=== PATIENT | male | born 1995 | race Caucasian/White ===

== ENCOUNTER → 2017-04-17 | Outpatient (CLI) | payer OTHER ==
[2016-06-27 20:31] VITALS: BP 112/65
--- NOTE | 2017-04-17 12:45 | RAD ---
HISTORY: Old neck and back injury. Study: Three views of the cervical spine. Comparison: Cervical spine series dated April 08, 2015. Findings: AP and lateral radiographs of the cervical spine demonstrate normal alignment from the craniocervica l junction to the level of T1. The central canal appears patent without posterior element abnormali ty. No prevertebral soft tissue swelling can be identified. The odontoid appears intact. The late ral masses of C1 align with the body of C2. The lung apices are clear. IMPRESSION: 1. Unremarkable examination of the cervical spine. Reported By:
--- NOTE | 2017-04-17 12:48 | RAD ---
HISTORY: Bold neck and back injury. Study: Three views of the lumbar spine. Comparison: Lumbar spine series dated April 08, 2015. Findings: Normal alignment of the lumbar spine is maintained. The posterior elements appear unremarkable in t heir appearance. The disk space height is maintained without significant endplate sclerosis. No ev idence for acute fracture can be identified. IMPRESSION: 1. Negative exam. Reported By:
== END ==
LOC: RAD 11:51
PROVIDERS: ATTEND Internal Medicine
DX: S19.89XA Other specified injuries of other specified part of neck, initial encounter (principal); S39.82XA Other specified injuries of lower back, initial encounter; X58.XXXA Exposure to other specified factors, initial encounter
CPT/HCPCS: 72040; 72100

== ENCOUNTER 2020-02-19 05:06 | Observation (INO) ==
[2020-02-19 05:16] VITALS: BMI 17.7
--- NOTE | 2020-02-19 05:35 | DR.DING ---
HPI - Time Seen Time seen: 05:23 - PCP Primary Care Physician: NFD - Complaint Chief Complaint Doctors Comments: Patient states he took 15 -20 Tramadol and later says he took 10 -15 Tramadols about an hour ago after getting upset with his "baby mama" and his children and the way people has been treating him. States they do not want to be around him because he can be a "butt whole" at times. States he was trying to hurt himself then because he is upset about his ex-girl friend and the fact that he cannot work because he is taking care of his jason that had a stroke and cannot walk and he has to carry him around and this has been going on for a while. He has not local doctor. He smokes one pack cigarettes daily and drinks 12 pack day and had cocaine couple of days ago. States he tried to hurt himself about 2-3 months ago he went to [facility] in [place] for overdose meth. He has been having suicidal thoughts 2-3 months ago and earlier. He denies history or seizures. He denies chest pain, SOB, cold, cough, fever or chills. He denies stomach pain, hematuria or dysuria. Chief Complaint:: PER EMS, 911 CALL TO PATIENT FOR POSSIBLE OVERDOSE. PATIENT STATES HE TOOK 15-20 TRAMADOL BECAUSE HE AND HIS SIGNIFICANT OTHER WERE ARGUING. - COVID-19 Coronavirus risk:travel/contact w/high risk person: No Has patient experienced Coronavirus symptoms: No - Reviewed Nurses Notes Review: Yes - Source History Provided: Patient - Mode of Arrival Mode of Arrival: EMS - Timing Onset of Chief Complaint: 02/19/20 - Context Ingestion: Intentional Expresses: Suicidal Ideation, Suicidal Intent Stressors: Work, Family, Relationships History of: Depression, Suicidal Attemp - Severity Severity: Moderate - Modifying Factors Vomited after ingestion: No - Associated signs and symptoms Associated signs and symptoms: ETOH intoxication, Cocaine PMH - PMH Past Medical History: No Past Medical History: Kidney Stones Past Surgical History: No Surgical History: No History - Family History History of Family Medical Conditions: No Family Medical History: Diabetes Mellitus, Hypertension - Social History Alcohol Use: Occasionally Do you use any recreational Drugs:: Yes Lives Where: Home - Travel Risk Coronavirus risk:travel/contact w/high risk person: No Has patient experienced Coronavirus symptoms: No - infectious screening In the last 2 months have you had wt loss of >10#?: NO Have you had fever, night sweats or hemotysis?: No Have you traveled outside the country in the last 6 months?: No Isolation: Standard ROS - Review of Systems Constitutional: No Symptoms Reported Eyes: No Symptoms Reported ENTM: No Symptoms Reported Respiratoy: No Symptoms Reported. negative: See HPI, Productive Cough, Non- Productive Cough, Moist Cough, Dry Cough, Hacking Cough, Barking Cough, Brassy Cough, Orthopnea, Short of Breath, Stridor, Wheezing, Hemoptysis, Other Cardiovascular: No Symptoms Reported. negative: See HPI, Chest Pain, Edema, Palpitations, Syncope, Cyanosis, Skin Mottling, Other Gastrointestinal/Abdominal: No Symptoms Reported. negative: See HPI, Abdominal Pain, Constipation, Diarrhea, Nausea, Vomiting, Food Intolerance, Other Genitourinary: No Symptoms Reported Neurological: No Symptoms Reported, Depressed, Emotional Problems Musculoskeletal: No Symptoms Reported Integumentary: No Symptoms Reported Hematologic/Lymphatic: No Symptoms Reported. negative: See HPI, Anemia, Blood Clots, Easy Bleeding, Easy Bruising, Swollen Glands, Lymphadenopathy, Other Endocrine: No Symptoms Reported Psychiatric: No Symptoms Reported, Depression, Suicidal PE - General Limitations: No Limitations General Appearance: Alert, In No Apparent Distress - Head Head Exam: Normal Inspection, Atraumatic, Normocephalic - Eyes Eye exam: Normal Appearance, PERRL, EOMI. negative: Scleral Icterus, Conjunctival Injection, Nystagmus, Miosis, Mydrasis, Periorbital Swelling, Periorbital Tenderness, Other Pupils: Regular, Round: Bilateral, Reactive: Bilateral Sclera/Conjunctival: Normal Inspection: Bilateral - ENT ENT Exam: Normal Exam, Normal Oropharynx, Normal External Ear Exam, Mucous Membranes Moist, TM's Normal Bilaterally - Neck Neck Exam: Normal Inspection, Full ROM, Trachea Midline. negative: Tenderness, Meningismus, Lymphadenopathy, Thyromegaly, Other - Chest Chest Inspection: Normal Inspection, Symmetric Chest Wall Rise. negative: Tenderness, Rash, Abscess, Other - Respiratory Respiratory Exam: Normal Lung Sounds Bilat Respiratory Exam: Bilateral Clear to Auscultation - Cardiovascular Cardiovascular Exam: Regular Rate, Normal Rhythm, Normal Heart Sounds - Abdominal Exam Abdominal Exam: Normal Inspection, Normal Bowel Sounds, Soft. negative: Distention, Tenderness, Guarding, Rebound, Rigidity, Dimnished Bowel Sounds, Hyperactive Bowel Sounds, Hypoactive Bowel Sounds, Organomegaly, Trauma, Incision, Ascites, Mass, Bruit, Pulsatile Mass, Hernia, Other Abdominal Tenderness: negative: RUQ, RLQ, LUQ, LLQ, Epigastrium, Suprapubic, Diffuse, Mild, Moderate, Severe, Other - Extremities Extremities Exam: Normal Inspection, Full ROM, Normal Capillary Refill. negat conrado: Tenderness, Edema, Joint Swelling, Calf Tenderness, Other - Back Back Exam: Normal Inspection, Full ROM. negative: Tenderness, (R) CVA Tenderness, (L) CVA Tenderness, Muscle Spasm, Paraspinal Tenderness, Vertebral Tenderness, Rashes, (R) Sciatic Notch Tenderness, (L) Sciatic Notch Tendern, (R) Straight Leg Raise, (L) Straight Leg Raise, Other - Neurologic Neurological Exam: Alert, Oriented X3, CN II-XII Intact, Reflexes Normal. negative: Normal Gait (gait not tested) Speech: Fluid Speech Cranial Nerve Exam: EOM Function (II, III, IV, ): Normal, Facial Sensation (V): Normal, Facial Palsy (VII): Normal, Gag reflex (XI): Normal, Spinal Accessory Function (XI): Normal, Tongue Deviation: Normal Cerebellar Function: Normal Vibratory/Position Motor Strength - LUE: 5/5 Motor Strength - RUE: 5/5 Motor Strength - LLE: 5/5 Motor Strength - RLE: 5/5 Upper Motor Neuron Exam: Babinski Sign: Normal Sensory Exam Upper Extremity: Light Touch: Normal Sensory Exam Lower Extremity: Light Touch: Normal DTR: bicep (L): 2+, bicep (R): 2+, Patellar (L): 3+, patellar (R): 3+ - Psychiatric Psychiatric Exam: Normal Affect, Normal Mood, Suicidal Ideation Expanded Psychiatric Exam: Poor Eye Contact. negative: Pressured Speech, Echolalia, Psychomotor Agitation, Delusional, Paranoid, Catatonic, Mute, Perseverating, Euphoric, Restlessness, Flight of Ideas, Loose Associations, Uncooperative, Refuses to Answer, Auditory Hallucinations, Visual Hallucinations, Confabulating, Other - Skin Skin Exam: Warm, Dry, Intact, Normal Color - Vital signs Vitals: Temperature 98.0 F Pulse Rate 69 Respiratory Rate 43 Blood Pressure [Right Arm] 119/74 Blood Pressure 111/66 O2 Sat by Pulse Oximetry 99 Course - Reevaluation 1st: Improved - Consultation Called: 08:07 Call Returned: 08:07 (Dr. Schneider to admit) - Education/Counseling Education/Counseling: Patient Educated On: Treatment, Diagnosis, Prognosis, Needs for Follow Up ROR - Labs Reviewed Laboratory Results Reviewed?: Yes (All labs and x-ray results reviewed and discussed with patient) Result Diagrams: 02/19/20 05:45 02/19/20 05:45 - XRAY XRAY Interpreted by: Radiologist (CXR: no acute cardiopulmonary changes noted.) - EKG Rate: 81 [place]: Normal Rhythm: NSR Block: None Hypertrophy: None ST: Normal, Nonsp - Labs Reviewed Laboratory: WBC 7.8 X10^3/uL (3.6-10.0) 02/19/20 05:45 RBC 5.52 X10^6/uL (4.7-6.0) 02/19/20 05:45 Hgb 16.4 g/dL (13.5-18.0) 02/19/20 05:45 Hct 47.2 % (42.0-54.0) 02/19/20 05:45 MCV 85.6 fL (80.0-100.0) 02/19/20 05:45 MCH 29.7 pg (27.0-34.0) 02/19/20 05:45 MCHC 34.7 g/dL (33.0-35.0) 02/19/20 05:45 RDW 13.7 % (11.6-16.5) 02/19/20 05:45 Plt Count 284 X10^3/uL (150.0-450.0) 02/19/20 05:45 MPV 8.6 fL (7.4-11.0) 02/19/20 05:45 Neut % (Auto) 47.7 % (42.0-75.0) 02/19/20 05:45 Lymph % (Auto) 36.7 % (21.0-51.0) 02/19/20 05:45 [place] % (Auto) 12.4 % (0.0-13.0) 02/19/20 05:45 Eos % (Auto) 2.5 % (0.9-2.9) 02/19/20 05:45 Baso % (Auto) 0.7 % (0.2-1.0) 02/19/20 05:45 Neut # (Auto) 3.7 x10^3/uL (2.2-4.8) 02/19/20 05:45 Lymph # (Auto) 2.9 X10^3/uL (1.3-2.9) 02/19/20 05:45 [place] # (Auto) 1.0 x10^3/uL (0.3-0.8) H 02/19/20 05:45 Eos # (Auto) 0.2 x10^3/uL (0.0-0.2) 02/19/20 05:45 Baso # (Auto) 0.1 X10^3/uL (0.0-0.1) 02/19/20 05:45 Absolute Nucleated RBC 0.2 /100WBC 02/19/20 05:45 PT 11.7 SECONDS (11.8-14.3) 02/19/20 05:45 INR Target Range - 02/19/20 05:45 INR 0.88 (0.8-1.3) 02/19/20 05:45 APTT 30.3 SECONDS (22.9-36.5) 02/19/20 05:45 PTT Comment - 02/19/20 05:45 Sodium 141 mmol/L (136-145) 02/19/20 05:45 Corrected Sodium TNP 02/19/20 05:45 Potassium 2.6 mmol/L (3.5-5.1) L* 02/19/20 05:45 Chloride 102 mmol/L (98-107) 02/19/20 05:45 Carbon Dioxide 25.1 mmol/L (21-32) 02/19/20 05:45 BUN 7 mg/dL (7-18) 02/19/20 05:45 Creatinine 1.03 mg/dL (0.70-1.30) 02/19/20 05:45 Est GFR (MDRD) Af Amer > 60 (>60) 02/19/20 05:45 Est GFR (MDRD) Non-Af > 60 (>60) 02/19/20 05:45 Glucose 78 mg/dL (65-99) 02/19/20 05:45 Calcium 10.5 mg/dL (8.5-10.1) H 02/19/20 05:45 Corrected Calcium TNP 02/19/20 05:45 Magnesium 2.1 mg/dL (1.7-2.9) 02/19/20 05:45 Total Bilirubin 1.80 mg/dL (0.2-1.0) H 02/19/20 05:45 AST 29 Units/L (15-37) 02/19/20 05:45 ALT 27 Units/L (12-78) 02/19/20 05:45 Alkaline Phosphatase 91 Units/L (46-116) 02/19/20 05:45 Creatine Kinase 996 Units/L (39-308) H 02/19/20 05:45 CK-MB (CK-2) 6.5 ng/mL (0-4.0) H* 02/19/20 05:45 CK/CKMB % Calc 0.7 % (<4) 02/19/20 05:45 Troponin I < 0.02 ng/mL (0-1.5) 02/19/20 05:45 Total Protein 7.7 g/dL (6.4-8.2) 02/19/20 05:45 Albumin 4.6 g/dL (3.4-5.0) 02/19/20 05:45 Globulin 3.1 g/dL (2.5-4.5) 02/19/20 05:45 Albumin/Globulin Ratio 1.5 Ratio (1.1-2.1) 02/19/20 05:45 Salicylates < 2.8 mg/dL (2.8-20) L 02/19/20 05:45 Urine Opiates Screen Negative (NEG=<300) 02/19/20 07:20 Urine Methadone Screen Negative (NEG=<300) 02/19/20 07:20 Acetaminophen 0.0 ug/mL (10-30) L 02/19/20 05:45 Ur Barbiturates Screen Negative (NEG=<200) 02/19/20 07:20 Ur Phencyclidine Scrn Negative (NEG=<25) 02/19/20 07:20 Ur Amphetamines Screen Positive (NEG=<1000) 02/19/20 07:20 U Benzodiazepines Scrn Negative (NEG=<200) 02/19/20 07:20 Urine Cocaine Screen Positive (NEG=<300) 02/19/20 07:20 U Marijuana (THC) Screen Negative (NEG=<50) 02/19/20 07:20 Ethyl Alcohol mg/dL < 3 mg/dL (0-19.9) 02/19/20 05:45 Opioid - Opioid Risk Tool Age (Zafar box if 16-45): No History of Preadolescent Sexual Abuse: No Total: 0 Total Score Risk Category: Low Risk - Diagnosis Discharge Problem: Hypokalemia, Neurosis, depressive, Suicidal ideations, Methamphetamine abuse Drug overdose Qualifiers: Encounter type: initial encounter Injury intent: intentional self-harm Qualified Code(s): T50.902A - Poisoning by unspecified drugs, medicaments and biological substances, intentional self-harm, initial encounter Overdose of analgesic Qualifiers: Encounter type: initial encounter Injury intent: intentional self-harm Qualified Code(s): T39.92XA - Poisoning by unspecified nonopioid analgesic, antipyretic and antirheumatic, intentional self-harm, initial encounter Rhabdomyolysis Qualifiers: Rhabdomyolysis type: non-traumatic Qualified Code(s): M62.82 - Rhabdomyolysis - Discharge Plan Disposition: ADMITTED INPATIENT Condition: Stable - Follow ups/Referrals Follow ups/Referrals: NFD,None [Primary Care Provider] - 3 days - Instructions
[2020-02-19] MEDS ORDERED: NS 1000 ML 1,000 ML ONE (05:50)
[2020-02-19 05:55] LABS: BASOPHILS # (AUTO) 0.1 X10^3/uL (0.0-0.1); BASOPHILS % (AUTO) 0.7 % (0.2-1.0); EOSINOPHILS # (AUTO) 0.2 x10^3/uL (0.0-0.2); EOSINOPHILS % (AUTO) 2.5 % (0.9-2.9); HEMATOCRIT 47.2 % (42.0-54.0); HEMOGLOBIN 16.4 g/dL (13.5-18.0); LYMPHOCYTES # (AUTO) 2.9 X10^3/uL (1.3-2.9); LYMPHOCYTES % (AUTO) 36.7 % (21.0-51.0); MEAN CORPUSCULAR HEMOGLOBIN 29.7 pg (27.0-34.0); MEAN CORPUSCULAR HGB CONC 34.7 g/dL (33.0-35.0); MEAN CORPUSCULAR VOLUME 85.6 fL (80.0-100.0); MEAN PLATELET VOLUME 8.6 fL (7.4-11.0); MONOCYTES % (AUTO) 12.4 % (0.0-13.0); NEUTROPHILS # (AUTO) 3.7 x10^3/uL (2.2-4.8); NEUTROPHILS % (AUTO) 47.7 % (42.0-75.0); PLATELET COUNT 284 X10^3/uL (150.0-450.0); RED BLOOD COUNT 5.52 X10^6/uL (4.7-6.0); RED CELL DISTRIBUTION WIDTH 13.7 % (11.6-16.5); WHITE BLOOD COUNT 7.8 X10^3/uL (3.6-10.0)
--- NOTE | 2020-02-19 05:56 | RAD ---
Chest AP portableIndication: Chest painComparison January 26, 2019FINDINGSThere is no pneumothorax or effusion. There is no consolidation. Heart size is normal. Monitoring leads obscure minimal detail.IMPRESSIONNo acute chest process.Electronically signed by: KIRA CACERES (Feb 19, 2020 05:55:27)
[2020-02-19] MEDS ORDERED: NS 1000 ML 1,000 ML IV SCH (06:00)
[2020-02-19 06:16] LABS: SALICYLATE < 2.8 mg/dL (2.8-20)
[2020-02-19] MEDS ORDERED: ACTIDOSE WITH SORBITOL PO ONE (06:18)
[2020-02-19] MEDS ORDERED: ACTIDOSE WITH SORBITOL ONE ×2 (06:19)
[2020-02-19 06:35] LABS: ALANINE AMINOTRANSFERASE 27 Units/L (12-78); ALBUMIN 4.6 g/dL (3.4-5.0); ALKALINE PHOSPHATASE 91 Units/L (46-116); ASPARTATE AMINO TRANSFERASE 29 Units/L (15-37); BLOOD ALCOHOL < 3 mg/dL (0-19.9); BLOOD UREA NITROGEN 7 mg/dL (7-18); CALCIUM 10.5 mg/dL (8.5-10.1); CARBON DIOXIDE 25.1 mmol/L (21-32); CHLORIDE 102 mmol/L (98-107); CKMB % 0.7 % (<4); CREATININE 1.03 mg/dL (0.70-1.30); MAGNESIUM 2.1 mg/dL (1.7-2.9); SODIUM 141 mmol/L (136-145); TOTAL PROTEIN 7.7 g/dL (6.4-8.2); TROPONIN I < 0.02 ng/mL (0-1.5); eGFR NON BLACK RACES > 60 (>60)
[2020-02-19 06:36] LABS: CREATINE KINASE 996 Units/L (39-308)
[2020-02-19 06:38] LABS: CREATINE KINASE MB 6.5 ng/mL (0-4.0)
[2020-02-19] MEDS: KLOR-CON PO STA ×2 (06:41→06:45)
[2020-02-19] MEDS: K-DUR TAB 20 MEQ PO ONE ×2 (06:44→06:45)
[2020-02-19] MEDS ORDERED: D5 1/2 NS + KCL 20 MEQ/L 1,000 ML IV ONE (06:48)
[2020-02-19] MEDS ORDERED: ZOFRAN INJ 4 MG VIAL ONE (07:25)
[2020-02-19] MEDS ORDERED: ZOFRAN INJ 4 MG VIAL IVP ONE (07:26)
[2020-02-19] MEDS: D5 1/2 NS + KCL 20 MEQ/L 1,000 ML IV SCH ×3 (07:53→18:31)
[2020-02-19 08:17] LABS: BILIRUBIN,URINE NEGATIVE (NEGATIVE); BLOOD/HEMOGLOBIN,URINE NEGATIVE (NEGATIVE); GLUCOSE, URINE NEGATIVE (NEGATIVE); KETONES,URINE 2+ (NEGATIVE); LEUKOCYTE ESTERASE ,URINE NEGATIVE (NEGATIVE); NITRITES,URINE NEGATIVE (NEGATIVE); PH,URINE 6.5 (5.0 - 8.0); PROTEIN,URINE NEGATIVE (NEGATIVE); UROBILINOGEN,URINE 1+ (NORMAL)
[2020-02-19] MEDS ORDERED: ATIVAN INJ 2 MG VIAL IVP PRN (08:18)
[2020-02-19 08:23] LABS: APPEARANCE,URINE CLEAR (CLEAR); COLOR,URINE YELLOW (YELLOW)
[2020-02-19 08:24] LABS: BACTERIA,URINE NEGATIVE /HPF (NEGATIVE); RBC,URINE NONE SEEN /HPF (0-3); SQUAMOUS EPITHELIAL CELL,UR NEGATIVE /HPF (NEGATIVE)
[2020-02-19] MEDS ORDERED: D5 1/2 NS + KCL 20 MEQ/L 1,000 ML IV SCH (09:00)
[2020-02-20 05:15] LABS: ALANINE AMINOTRANSFERASE 20 Units/L (12-78); ALKALINE PHOSPHATASE 64 Units/L (46-116); ASPARTATE AMINO TRANSFERASE 18 Units/L (15-37); BLOOD UREA NITROGEN 7 mg/dL (7-18); CALCIUM 8.9 mg/dL (8.5-10.1); CARBON DIOXIDE 28.9 mmol/L (21-32); CHLORIDE 109 mmol/L (98-107); CKMB % 0.4 % (<4); COR CA(FOR HYPOALB) 9.7 mg/dL (8.5-10.1); COR NA(FOR HYPERGLY) 143 mmol/L (136-145); CREATINE KINASE 474 Units/L (39-308); CREATINE KINASE MB 2.1 ng/mL (0-4.0); CREATININE 1.02 mg/dL (0.70-1.30); SODIUM 143 mmol/L (136-145); TOTAL PROTEIN 5.5 g/dL (6.4-8.2); TROPONIN I < 0.02 ng/mL (0-1.5); eGFR NON BLACK RACES > 60 (>60)
[2020-02-20] MEDS: D5 1/2 NS + KCL 20 MEQ/L 1,000 ML IV SCH ×2 (05:33→09:29)
[2020-02-20] MEDS ORDERED: NICOTINE PATCH TD ONE (16:27)
[2020-02-20] MEDS: NICOTINE PATCH TD SCH (16:31)
[2020-02-21 07:49] VITALS: BP 121/66
[2020-02-21] MEDS: NICOTINE PATCH TD SCH (08:12)
== END 2020-02-21 11:30 ==
LOC: MED/SURG 05:07 → ER 05:07 → MED/SURG 09:25
PROVIDERS: ADMIT Obstetrics & Gynecology Obstetrics; ATTEND Obstetrics & Gynecology Obstetrics
DX: F10.10 Alcohol abuse, uncomplicated; T40.4X2A Poisoning by other synthetic narcotics, intentional self-harm, initial encounter; F34.1 Dysthymic disorder; M62.82 Rhabdomyolysis; E87.6 Hypokalemia; T39.092A Poisoning by salicylates, intentional self-harm, initial encounter